=== PATIENT | female | born 1995 | race Two or more races ===

== ENCOUNTER 2023-10-26 14:32 | Observation (INO) | payer MEDICAID ==
[~2023-10-26] VITALS: Ht 172.7 cm; Wt 71.7 kg
[2023-10-26] MEDS ORDERED: LACTATED RINGER'S 1,000 ML IV ONE (15:00)
[2023-10-26] MEDS ORDERED: ONDANSETRON HCL 4 MG/2 ML VIAL IV ONE (15:00)
[2023-10-26] MEDS ORDERED: D5W/LACTATED RINGERS 1,000 ML IV ONE (15:30)
[2023-10-26] MEDS ORDERED: PREN-96 PO (16:04)
[2023-10-26 16:29] LABS: Rapid Influenza A Negative (Negative); Rapid Influenza B Negative (Negative)
[2023-10-26 16:30] LABS: COVID19 ANTIGEN SOFIA FIA NEGATIVE (NEGATIVE)
== END 2023-10-26 17:24 | disposition home or self-care (01) ==
LOC: UNDOADMOB 14:32 → LDRP 14:32 → UNDODISOB 17:24
PROVIDERS: ADMIT Obstetrics & Gynecology; ATTEND Obstetrics & Gynecology
DX: O99.513 Diseases of the respiratory system complicating pregnancy, third trimester (principal); Z20.822 Contact with and (suspected) exposure to COVID-19; O26.893 Other specified pregnancy related conditions, third trimester; J11.1 Influenza due to unidentified influenza virus with other respiratory manifestations; R10.9 Unspecified abdominal pain; M79.10 Myalgia, unspecified site; Z3A.30 30 weeks gestation of pregnancy
CPT/HCPCS: 36415; 59025; 81002; 87426; 87804; 94760; 96361; 96374; G0378; J2405